=== PATIENT | female | born 1940 | race Caucasian/White ===

== ENCOUNTER 2023-09-02 06:04 | Inpatient (IN) ==
[2023-09-02] MEDS: 0.9 % SODIUM CHLORIDE 500 ML IV ONE (06:30)
[2023-09-02] MEDS: NALOXONE HCL 0.4 MG/ML VIAL IV ONE (06:30)
[2023-09-02 06:48] LABS: Basophils # (Auto) 0.01 K/mcL (0.00-0.30); Basophils % (Auto) 0.1 % (0.0-2.0); Eosinophils # (Auto) 0 K/mcL (0.00-0.70); Eosinophils % (Auto) 0 % (0.0-7.0); Hemoglobin 10.6 g/dL (11.2-15.7); Lymphocytes # (Auto) 0.97 K/mcL (1.50-4.80); Lymphocytes % (Auto) 6.7 % (15.5-49.0); Mean Cell Volume 91.7 fL (80.0-100.0); Mean Corpuscular HGB Conc 32.1 g/dL (31.0-36.0); Mean Platelet Volume 10.7 fL (8.8-12.5); Monocytes # (Auto) 0.93 K/mcL (0.10-0.90); Monocytes % (Auto) 6.4 % (1.0-12.0); Neutrophils % (Auto) 85.8 % (38.0-78.0); Platelet Count 370 K/mcL (140-440); Red Cell Distribution Width 13.8 % (11.5-14.5); WBC 14.5 K/mcL (4.5-11.0)
[2023-09-02] MEDS: DEXTROSE 5% IN WATER 100 ML IV ONE (07:14)
[2023-09-02 07:19] LABS: Thyroid Stimulating Hormone 1.25 uIU/mL (0.27-5.01)
[2023-09-02 07:23] LABS: ALT/SGPT 126 U/L (<40); AST/SGOT 262 U/L (<32); Albumin 2.4 gm/dL (3.2-5.2); Albumin/Globulin Ratio 0.5 (1.0-2.3); Alkaline Phosphatase 330 U/L (39-117); Bilirubin,Total 0.9 mg/dL (0.1-1.0); Blood Urea Nitrogen 35 mg/dL (8-23); Calcium 8.7 mg/dL (8.6-10.4); Carbon Dioxide 20 mmol/L (22-30); Chloride 99 mmol/L (96-108); Globulin 5.1 gm/dL (2.2-3.7); Glomerular Filtration Rate 59; Glucose 91 mg/dL (70-105)
[2023-09-02] MEDS: cefTRIAXone 1 GM VIAL IV ONE (07:23)
[2023-09-02] MEDS: DOXYCYCLINE 100 MG in DEXTROSE 5% IN WATER 100 ML IV ONE (07:24)
[2023-09-02 07:55] LABS: Free T4 (Free Thyroxine) 1.32 ng/dL (0.93-1.70)
[2023-09-02 08:10] LABS: Appearance,Urine CLOUDY (Clear); Bacteria,Urine MANY /hpf (0); Bilirubin,Urine Negative (Negative); Color,Urine AMBER; Culture Indicated,Urine No; Glucose,Urine (UA) Negative (Negative); Ketones,Urine Negative (Negative); Leukocyte Esterase,Urine 75 /uL (Negative); Mucus,Urine FEW /hpf; Nitrate,Urine Negative (Negative); Protein,Urine 100 mg/dL (Negative); Specific Gravity,Urine 1.025 (1.000-1.035); Urine Blood Negative (Negative); Urine RBC 14 /hpf (0-3); Urine Squamous Epithelial Cell 6 /hpf (0-4); Urine WBC 114 /hpf (0-4)
[2023-09-02] MEDS ORDERED: SENNOSIDES 1 TABLET PO PRN (13:13)
[2023-09-02] MEDS ORDERED: LACTULOSE 20 GM/30 ML ORAL.SOL PO PRN (13:13)
[2023-09-02] MEDS ORDERED: oxyCODONE IR 5 MG TABLET PO PRN (13:13)
[2023-09-02] MEDS ORDERED: ONDANSETRON 4 MG/2 ML VIAL IV PRN (13:13)
[2023-09-02] MEDS: DILTIAZEM 125 MG in DEXTROSE 5% IN WATER 100 ML IV SCH (13:48)
[2023-09-02] MEDS: LACTATED RINGERS 1,000 ML IV SCH (14:08)
[2023-09-02] MEDS: 0.9 % SODIUM CHLORIDE 10 ML SYRINGE IV SCH (14:12)
[2023-09-02] MEDS: AZITHROMYCIN 500 MG in DEXTROSE 5% IN WATER 250 ML IV SCH (14:12)
[2023-09-02 15:13] LABS: Appearance,Urine Slightly Cloudy (Clear); Bacteria,Urine Many /hpf (0); Bilirubin,Urine Negative (Negative); Color,Urine Amber; Culture Indicated,Urine Yes; Glucose,Urine (UA) Negative (Negative); Ketones,Urine Negative (Negative); Leukocyte Esterase,Urine Trace /uL (Negative); Nitrate,Urine Positive (Negative); PH,Urine 5.5 (5.0-9.0); Protein,Urine 30 mg/dL (Negative); Specific Gravity,Urine >= 1.030 (1.000-1.035); Urine Blood Moderate ery/mcL (Negative); Urine RBC 4 /hpf (0-3); Urine Squamous Epithelial Cell 0 /hpf (0-4); Urine WBC 23 /hpf (0-4); Urobilinogen,Urine Normal
[2023-09-02] MEDS ORDERED: IOPAMIDOL 100 ML BOTTLE IV ONE (15:29)
[2023-09-02] MEDS: CEFEPIME 2 GM VIAL IV SCH (15:58)
[2023-09-02] MEDS: ACETAMINOPHEN 1,000 MG/100 ML BAG IV SCH (16:11)
[2023-09-02] MEDS ORDERED: VANCOMYCIN PER PHARMACY IV SCH (16:56)
[2023-09-02] MEDS: VANCOMYCIN 1,500 MG in 0.9 % SODIUM CHLORIDE 500 ML IV SCH (17:35)
[2023-09-02] MEDS: HYDROmorphone 0.5 MG/0.5 ML SYRINGE IV PRN (17:46)
[2023-09-02] MEDS: DOCUSATE SODIUM 100 MG CAPSULE PO SCH (21:00)
[2023-09-02] MEDS: DILTIAZEM 125 MG/25 ML VIAL IV ONE (23:08)
[2023-09-03 06:27] LABS: ALT/SGPT 108 U/L (<40); AST/SGOT 180 U/L (<32); Albumin 2.1 gm/dL (3.2-5.2); Albumin/Globulin Ratio 0.4 (1.0-2.3); Alkaline Phosphatase 282 U/L (39-117); Basophils # (Auto) 0 K/mcL (0.00-0.30); Basophils % (Auto) 0 % (0.0-2.0); Bilirubin,Direct 0.4 mg/dL (<0.3); Bilirubin,Total 0.6 mg/dL (0.1-1.0); Blood Urea Nitrogen 39 mg/dL (8-23); Calcium 8.5 mg/dL (8.6-10.4); Carbon Dioxide 21 mmol/L (22-30); Chloride 103 mmol/L (96-108); Eosinophils # (Auto) 0.02 K/mcL (0.00-0.70); Eosinophils % (Auto) 0.2 % (0.0-7.0); Globulin 4.9 gm/dL (2.2-3.7); Glomerular Filtration Rate 80; Glucose 112 mg/dL (70-105); Hematocrit 32.4 % (34.1-44.9); Hemoglobin 10.2 g/dL (11.2-15.7); Lactate Dehydrogenase 343 U/L (135-225); Lymphocytes # (Auto) 1.29 K/mcL (1.50-4.80); Lymphocytes % (Auto) 10.5 % (15.5-49.0); Mean Cell Volume 93.1 fL (80.0-100.0); Mean Corpuscular HGB Conc 31.5 g/dL (31.0-36.0); Monocytes # (Auto) 0.84 K/mcL (0.10-0.90); Monocytes % (Auto) 6.8 % (1.0-12.0); Neutrophils % (Auto) 81.9 % (38.0-78.0); Platelet Count 265 K/mcL (140-440); RBC 3.48 M/mcL (3.59-5.38); Triglycerides 113 mg/dL (<150); Uric Acid 4.7 mg/dL (2.5-8.0); WBC 12.3 K/mcL (4.5-11.0)
[2023-09-03] MEDS: LACTATED RINGERS 500 ML IV ONE (07:12)
[2023-09-03] MEDS: BISACODYL 10 MG SUPP.RECT PR PRN (11:51)
[2023-09-03] MEDS: ENOXAPARIN 100 MG/ML SYRINGE SQ SCH (20:49)
[2023-09-04] MEDS: DILTIAZEM 125 MG/25 ML VIAL IV ONE (00:54)
[2023-09-04 07:33] LABS: Basophils # (Auto) 0.01 K/mcL (0.00-0.30); Basophils % (Auto) 0.1 % (0.0-2.0); Eosinophils # (Auto) 0.03 K/mcL (0.00-0.70); Eosinophils % (Auto) 0.2 % (0.0-7.0); Hemoglobin 9.9 g/dL (11.2-15.7); Lymphocytes # (Auto) 0.99 K/mcL (1.50-4.80); Lymphocytes % (Auto) 6.1 % (15.5-49.0); Mean Cell Volume 91.4 fL (80.0-100.0); Mean Corpuscular HGB Conc 31.9 g/dL (31.0-36.0); Mean Platelet Volume 10.9 fL (8.8-12.5); Monocytes # (Auto) 1.15 K/mcL (0.10-0.90); Monocytes % (Auto) 7.1 % (1.0-12.0); Neutrophils % (Auto) 85.6 % (38.0-78.0); Platelet Count 242 K/mcL (140-440); RBC 3.39 M/mcL (3.59-5.38); Red Cell Distribution Width 13.7 % (11.5-14.5); WBC 16.1 K/mcL (4.5-11.0)
[2023-09-04 07:54] LABS: ALT/SGPT 102 U/L (<40); AST/SGOT 141 U/L (<32); Albumin 2.1 gm/dL (3.2-5.2); Albumin/Globulin Ratio 0.5 (1.0-2.3); Alkaline Phosphatase 273 U/L (39-117); Bilirubin,Direct 0.4 mg/dL (<0.3); Bilirubin,Total 0.7 mg/dL (0.1-1.0); Blood Urea Nitrogen 33 mg/dL (8-23); Calcium 8.4 mg/dL (8.6-10.4); Carbon Dioxide 21 mmol/L (22-30); Chloride 105 mmol/L (96-108); Globulin 4.6 gm/dL (2.2-3.7); Glomerular Filtration Rate 84; Glucose 102 mg/dL (70-105); Lactate Dehydrogenase 309 U/L (135-225); Phosphorous 2.3 mg/dL (2.5-4.5); Triglycerides 107 mg/dL (<150)
[2023-09-04] MEDS: DILTIAZEM 125 MG in DEXTROSE 5% IN WATER 100 ML IV SCH (09:02)
[2023-09-04] MEDS: ceFAZolin 1 GM VIAL IV SCH (12:14)
[2023-09-04] MEDS: FAMOTIDINE/PF 20 MG/2 ML VIAL IV SCH (13:42)
[2023-09-04] MEDS ORDERED: ONDANSETRON 4 MG ODT TABLET SL PRN (15:59)
[2023-09-04] MEDS ORDERED: LACTOPEROXI/GLUC OXID/POT THIO 1 EACH GEL..EA. TOPICAL PRN (15:59)
[2023-09-04] MEDS: LORazepam 2 MG/ML VIAL IV PRN (16:07)
[2023-09-04] MEDS: 0.9 % SODIUM CHLORIDE 10 ML SYRINGE IV SCH (20:29)
[2023-09-04] MEDS: morphine 4 MG/ML VIAL NEB PRN (20:29)
[2023-09-04] MEDS: DOCUSATE SODIUM 100 MG CAPSULE PO SCH (21:33)
[2023-09-05] MEDS: morphine 4 MG/ML VIAL IV PRN (03:05)
== END 2023-09-06 10:00 | disposition hospice, inpatient (51) | DRG 871 ==
LOC: ED 06:04 → ICU 13:03 → MEDSUR 09-05 14:55
PROVIDERS: ADMIT Internal Medicine; ATTEND Internal Medicine